=== PATIENT | male | born 1940 | race Caucasian/White ===

== ENCOUNTER 2022-05-01 13:27 | Outpatient (CLI) | payer MEDICARE, SELFPAY ==
[2022-05-01 11:16] LABS: Creatinine Urine 208.5 mg/dL
[2022-05-01 11:21] LABS: Microalbumin Creatinine Ratio 0 mg/g (0-30); Microalbumin Urine 2 mg/dL
[2022-05-01 11:30] LABS: Albumin* 4.1 g/dL (3.3-5.0); Chloride* 89 mmol/L (96-114); Sodium* 129 mmol/L (135-149)
[2022-05-01 11:32] LABS: Bilirubin Total* 2.7 mg/dL (0.1-1.5); Carbon Dioxide* 33 mmol/L (20-32); Cholesterol* 154 mg/dL (90-199); Creatinine* 0.9 mg/dL (0.5-1.5); Estimated Glomerular Filt Rate 84 ml/min
[2022-05-01 11:33] LABS: Alanine Aminotransferase* 25 U/L (4-50); Alkaline Phosphatase* 58 U/L (40-150); Aspartate Amino Transferase* 26 U/L (12-35); Blood Urea Nitrogen* 19 mg/dL (7-30); Calcium* 9.1 mg/dL (8.4-10.6); Glucose* 138 mg/dL (60-115); Total Protein* 6.8 g/dL (6.0-8.3); Triglycerides* 106 mg/dL (40-149)
[2022-05-01 11:34] LABS: HDL Cholesterol* 54 mg/dL (>=40); LDL Cholesterol Calculated 79 mg/dL (<100)
[2022-05-01 12:11] LABS: PSA Screen* < 0.06 ng/mL (0.10-4.00)
== END 2022-05-01 13:28 | disposition home or self-care (01) ==
PROVIDERS: PCP Internal Medicine; Visit Provider Internal Medicine
DX: E13.9 Other specified diabetes mellitus without complications (principal); E78.5 Hyperlipidemia, unspecified; I10 Essential (primary) hypertension; E11.9 Type 2 diabetes mellitus without complications; Z12.5 Encounter for screening for malignant neoplasm of prostate
CPT/HCPCS: 80053; 80061; 82043; 82570; 84153

== ENCOUNTER 2022-10-28 08:42 | Day surgery (SDC) | payer MEDICARE, SELFPAY ==
--- NOTE | 2022-10-28 09:05 | SUR.PREOP ---
Patient provided home covid negative results to RN.
--- NOTE | 2022-10-28 09:05 | SUR.PREOP ---
The eye drops brought by the patient (Ketorolac and Prednisolone) are examined and I have determined they are labeled by the patient's pharmacy for this patient as prescribed by the surgeon. The bottles are intact, recently obtained and appear to be correct.
[2022-10-28] MEDS: TETRACAINE 0.5% OPHTH 1 DROP EYE-RIGHT ×2 (09:14→09:22)
[2022-10-28 09:18] VITALS: BMI 31.4
[2022-10-28 09:21] VITALS: BP 154/89; PULSE 81; RESP 16; TEMP 36.6; O2SAT 96
[2022-10-28] MEDS: KETOROLAC OPHTH 0.5% 1 DROP EYE-RIGHT ×2 (09:21→09:31)
[2022-10-28] MEDS: SODIUM CHLORIDE 0.9 % (FLUSH) 10 ML SYRINGE IVF (09:34)
[2022-10-28] MEDS: TETRACAINE 0.5% OPHTH 2 DROP EYE-RIGHT (10:42)
[2022-10-28] MEDS: BALANCED SALT IRRIG SOLN 15 ML EYE-RIGHT (10:46)
--- NOTE | 2022-10-28 10:53 | W.ANESCHARGE ---
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
[2022-10-28 11:14] VITALS: BP 142/89; PULSE 73; RESP 20; TEMP 36.3; O2SAT 97
--- NOTE | 2022-10-28 11:14 | W.ANESCHARGE ---
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
--- NOTE | 2022-10-28 12:58 | W.PM.OPTPROC ---
Procedure Note Date of procedure: 10/28/22 Will [facility] bill your pro fee for this procedure?: Yes Procedure Description: SURGEON: Any Bernard MD PREOPERATIVE DIAGNOSIS: Nuclear sclerotic cataract, right eye. POSTOPERATIVE DIAGNOSIS: Nuclear sclerotic cataract, right eye. NAME OF OPERATION: Phacoemulsification of cataract with posterior chamber intraocular lens implantation in the right eye. ANESTHESIA: Topical. ESTIMATED BLOOD LOSS: Less than 2 cc. COMPLICATIONS: None. PATHOLOGY SPECIMEN: None. INDICATIONS: See consult note for details. The risks, benefits and alternatives of the procedure were explained to the patient, who elected to proceed and signed informed consent to do so. PROCEDURE: The patient was brought to the pre-holding area where the right eye was identified as the operative eye. I placed my initials above this eye. The patient received eye drops consisting of 0.5% tetracaine, 1% tropicamide, 10% phenylephrine, and 0.5% ketorolac. The patient was then brought to the operating room where the right eye was again identified as the operative eye. The eye was prepped with Betadine and draped in the usual sterile ophthalmic fashion. A #15 super-sharp blade was used to create a paracentesis site. 1% non-preserved intracameral lidocaine was injected into the anterior chamber. Endocoat was injected into the anterior chamber. A 2.4 mm keratome was used to create a three-plane self-sealing incision 1 mm anterior to the temporal limbus. A cystotome was used to create an anterior capsular leaflet. The Utrata forceps were used to extend this to form a continuous curvilinear capsulorrhexis. Hydrodissection was performed. The cataract was removed with phacoemulsification using the [id number]-dnm-[id number] technique. The irrigation and aspiration tip was used to remove the remaining cortex. Healon was injected into the capsular bag. An YESI ZCB00 intraocular lens of 20.5 diopters was injected into the capsular bag. The irrigation and aspiration tip was used to remove the remaining viscoelastic. Balanced salt solution on a cannula was used to hydrate the wound, and the wound was found to be watertight. The pupil was noted to be round. DISPOSITION: The patient was taken to the recovery room and discharged to home in stable condition. The patient was instructed to call me or go to the emergency department with any sudden change, including dramatic loss of vision, severe pain in the eye or eyebrow region, nausea, or vomiting. The patient will follow up in the clinic tomorrow morning. Surgeon: Any Bernard MD
== END 2022-10-28 11:42 | disposition home or self-care (01) ==
PROVIDERS: PCP Internal Medicine; Visit Provider Ophthalmology
PROC: (CPT 66984; principal; 2022-10-28 09:00)
DX: H25.11 Age-related nuclear cataract, right eye (principal)
CPT/HCPCS: 66984; 00142; 82962; 99100; A9270; J2250; J3010; V2632

== ENCOUNTER 2022-11-11 06:08 | Day surgery (SDC) | payer MEDICARE, SELFPAY ==
[2022-11-11] MEDS: TETRACAINE 0.5% OPHTH 1 DROP EYE-LEFT ×2 (06:36→06:43)
[2022-11-11 06:40] VITALS: BMI 31.4
[2022-11-11] MEDS: KETOROLAC OPHTH 0.5% 1 DROP EYE-LEFT ×2 (06:42→06:50)
[2022-11-11] MEDS: SODIUM CHLORIDE 0.9 % (FLUSH) 10 ML SYRINGE IVF (06:55)
[2022-11-11 06:56] VITALS: BP 154/84; PULSE 70; RESP 16; TEMP 35.9; O2SAT 99
--- NOTE | 2022-11-11 07:00 | SUR.PREOP ---
Patient provided home covid negative results to RN.
[2022-11-11] MEDS: TETRACAINE 0.5% OPHTH 2 DROP EYE-LEFT (07:18)
[2022-11-11] MEDS: BALANCED SALT IRRIG SOLN 15 ML EYE-LEFT (07:23)
--- NOTE | 2022-11-11 07:27 | W.ANESCHARGE ---
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
[2022-11-11 07:50] VITALS: BP 140/80; PULSE 58; RESP 16; O2SAT 98
--- NOTE | 2022-11-11 07:50 | P.OPTPRC_ITS ---
Procedure Note Date of procedure: 11/11/22 Will [facility] bill your pro fee for this procedure?: Yes Procedure Description: SURGEON: Any Bernard MD PREOPERATIVE DIAGNOSIS: Nuclear sclerotic cataract, left eye. POSTOPERATIVE DIAGNOSIS: Nuclear sclerotic cataract, left eye. NAME OF OPERATION: Phacoemulsification of cataract with posterior chamber intraocular lens implantation in the left eye. ANESTHESIA: Topical. ESTIMATED BLOOD LOSS: Less than 2 cc. COMPLICATIONS: None. PATHOLOGY SPECIMEN: None. INDICATIONS: See consult note for details. The risks, benefits and alternatives of the procedure were explained to the patient, who elected to proceed and sign ed informed consent to do so. PROCEDURE: The patient was brought to the pre-holding area where the left eye was identified as the operative eye. I placed my initials above this eye. The patient received eye drops consisting of 0.5% tetracaine, 1% tropicamide, 10% phenylephrine, and 0.5% ketorolac. The patient was then brought to the operating room where the left eye was again identified as the operative eye. The eye was prepped with Betadine and draped in the usual sterile ophthalmic fashion. A #15 super-sharp blade was used to create a paracentesis site. 1% non-preserved intracameral lidocaine was injected into the anterior chamber. Endocoat was injected into the anterior chamber. A 2.4 mm keratome was used to create a three-plane self-sealing incision 1 mm anterior to the temporal limbus. A cystotome was used to create an anterior capsular leaflet. The Utrata forceps were used to extend this to form a continuous curvilinear capsulorrhexis. Hydrodissection was performed. The cataract was removed with phacoemulsification using the [id number] technique. The irrigation and aspiration tip was used to remove the remaining cortex. Healon was injected into the capsular bag. An YESI ZCB00 intraocular lens of 19.0 diopters was injected into the capsular bag. The irrigation and aspiration tip was used to remove the remaining viscoelastic. Balanced salt solution on a cannula was used to hydrate the wound, and the wound was found to be watertight. The pupil was noted to be round. DISPOSITION: The patient was taken to the recovery room and discharged to home in stable condition. The patient was instructed to call me or go to the emergency department with any sudden change, including dramatic loss of vision, severe pain in the eye or eyebrow region, nausea, or vomiting. The patient will follow up in the clinic tomorrow morning. Surgeon: Any Bernard MD
== END 2022-11-11 08:09 | disposition home or self-care (01) ==
PROVIDERS: PCP Internal Medicine; Visit Provider Ophthalmology
PROC: (CPT 66984; principal; 2022-11-11 06:15)
DX: H25.12 Age-related nuclear cataract, left eye (principal)
CPT/HCPCS: 66984; 00142; 99100; J2250; J3010; V2632

== ENCOUNTER 2023-04-12 08:38 | Outpatient (CLI) | payer MEDICARE, SELFPAY | END 2023-04-12 08:39 | disposition home or self-care (01) | LOC: NFLDREF 12:12 | PROVIDERS: PCP Internal Medicine; Referring Provider Internal Medicine; Visit Provider Internal Medicine | DX: E11.9 Type 2 diabetes mellitus without complications (principal); E78.5 Hyperlipidemia, unspecified; C61 Malignant neoplasm of prostate; I10 Essential (primary) hypertension; R82.79 Other abnormal findings on microbiological examination of urine | CPT/HCPCS: 80053; 80061; 84153; 87086 ==

== ENCOUNTER 2024-04-11 07:55 | Outpatient (CLI) | payer MEDICARE, SELFPAY | END 2024-04-11 07:56 | disposition home or self-care (01) | LOC: NFLDREF 04-12 11:33 | PROVIDERS: PCP Internal Medicine; Referring Provider Internal Medicine; Visit Provider Internal Medicine | DX: E11.9 Type 2 diabetes mellitus without complications (principal); I10 Essential (primary) hypertension; E78.5 Hyperlipidemia, unspecified; N52.9 Male erectile dysfunction, unspecified; C61 Malignant neoplasm of prostate | CPT/HCPCS: 80053; 80061; 82043; 82570; G0103 ==

== ENCOUNTER 2025-04-17 07:30 | Outpatient (CLI) | payer MEDICARE, SELFPAY | END 2025-04-17 07:31 | disposition home or self-care (01) | LOC: NFLDREF 04-20 17:58 | PROVIDERS: PCP Internal Medicine; Referring Provider Internal Medicine; Visit Provider Internal Medicine | DX: E78.5 Hyperlipidemia, unspecified (principal); I10 Essential (primary) hypertension; E11.9 Type 2 diabetes mellitus without complications; C61 Malignant neoplasm of prostate | CPT/HCPCS: 80053; 80061; 82043; 82570; G0103 ==

== ENCOUNTER 2025-07-28 13:04 | Emergency (ER) | payer MEDICARE, SELFPAY ==
[2025-07-28 13:14] VITALS: BP 107/66; PULSE 73; RESP 18; TEMP 36.3; O2SAT 97; BMI 30.3
--- NOTE | 2025-07-28 13:48 | ED.WOUNDLAC ---
HPI - Wound/Laceration General Date Seen: 07/28/25 Chief Complaint: Laceration/Wound Stated Complaint: Fell and injured right arm Time Seen by Provider: 07/28/25 13:20 Source: patient Mode of arrival: ambulatory Limitations: no limitations History of Present Illness HPI narrative: Patient is an 85-year-old male presenting to emergency department after a fall. He states he was doing some work outside when he tripped over a piece of exposed edging. He landed on his right forearm onto the ground. States he did not hit his head. Denies any other injuries. Denies wrist, forearm, elbow, shoulder pain. Is doing well otherwise. No other concerns. Not on any blood thinners. Related Data Home Medications ?Medication ?Instructions ?Recorded ?Confirmed acetaminophen 325 mg capsule 650 mg PO QDAY PRN 10/20/22 07/28/25 (Tylenol) naproxen sodium 220 mg tablet 220 mg PO BID PRN 09/15/23 07/28/25 (Aleve) Previous Rx's ?Medication ?Instructions ?Recorded atorvastatin 20 mg tablet 20 mg PO QPM #90 tabs 04/19/25 losartan 50 mg tablet 50 mg PO DAILY for blood pressure 04/19/25 #90 tabs metformin 500 mg tablet,extended 1,000 mg (2 x 500 mg) PO QDAY #180 04/19/25 release 24 hr tabs triamterene 75 1 tab PO DAILY Hypertension #90 04/19/25 mg-hydrochlorothiazide 50 mg tablet tabs omeprazole 20 mg capsule,delayed 20 mg PO DAILY gerd #90 caps 05/18/25 release Allergies Allergy/AdvReac Type Severity Reaction Status Date / Time penicillin V Allergy Severe Anaphylaxis Verified 07/28/25 13:19 codeine Allergy Mild abd pain Verified 07/28/25 13:19 Review of Systems Narrative: Pertinent systems reviewed and were negative unless stated in HPI PFSH PFSH Medical History Erectile dysfunction ?N52.9 - Male erectile dysfunction, unspecified (ICD-10) H/O Mohs micrographic surgery for skin cancer ?Z85.828 - Personal history of other malignant neoplasm of skin (ICD-10) ?Z98.890 - Other specified postprocedural states (ICD-10) Ventral hernia ?K43.9 - Ventral hernia without obstruction or gangrene (ICD-10) Leg cramps ?R25.2 - Cramp and spasm (ICD-10) Tinea ?B35.9 - Dermatophytosis, unspecified (ICD-10) Type 2 diabetes mellitus ?E11.9 - Type 2 diabetes mellitus without complications (ICD-10) Malignant neoplasm of prostate ?C61 - Malignant neoplasm of prostate (ICD-10) History of squamous cell carcinoma ?Z85.89 - Personal history of malignant neoplasm of other organs and systems (ICD-10) History of basal cell carcinoma (BCC) ?Z85.828 - Personal history of other malignant neoplasm of skin (ICD-10) Gastroesophageal reflux disease ?K21.9 - Gastro-esophageal reflux disease without esophagitis (ICD-10) HTN (hypertension) ?I10 - Essential (primary) hypertension (ICD-10) Surgical History S/P prostatectomy ?Z90.79 - Acquired absence of other genital organ(s) (ICD-10) History of tonsillectomy and adenoidectomy ?Z90.89 - Acquired absence of other organs (ICD-10) History of cholecystectomy ?Z90.49 - Acquired absence of other specified parts of digestive tract (ICD-10) History of appendectomy ?Z90.49 - Acquired absence of other specified parts of digestive tract (ICD-10) Social History Narrative: 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 What is your current living situation?: I presently have a place to live Problems where you live: no known problems In the past 12 months, utilities in danger of being shut off: no In past 12 months, lack of transportation kept you from medical appts, meetings, work, or getting things needed for daily living: no In the past 12 mos, have been you worried that your food would run out before you had money to buy more?: never true In the past 12 mos, the food you bought just didn't last and you didn't have money to buy more?: never true Smoking Status: Former smoker How often do you have a drink containing alcohol: 2-4 times a month Alcohol type: beer How many standard drinks containing alcohol do you have on a typical day: 1 or 2 AUDIT-C Alcohol total score: 2 Non-prescribed substance use: denies use Caffeine: Yes How often does anyone, including family, friends and others, physically hurt you: never How often does anyone, including family, friends and others, insult or talk down to you: never How often does anyone, including family, friends and others, threaten you with harm: never How often does anyone, including family, friends and others, scream or curse at you: never Exam Narrative: Exam Narrative: Const: Well-nourished, Well-developed, in no distress Eyes: PERRL, no conjunctival injection, and symmetrical lids HENT: Atraumatic external nose and ears. Moist mucous membranes. CVS: Radial pulses 2+ and equal in all extremities MSK:Extremities w/o deformity, Normal Active ROM Skin: Warm, Dry. 11 cm skin tear to right ulnar aspect of the forearm Neuro: Normal Muscle tone, No focal neurological deficits. Psych: Awake, Alert, & Oriented x3. Appropriate mood and affect. Const: Vital Signs, click to edit/add: Vital Signs - 24 hr 07/28/25 13:14 Temperature 97.3 F L Pulse Rate [Left P ulse Oximeter] 73 Respiratory Rate 18 Blood Pressure [Ri ght Upper Arm] 107/66 Pulse Oximetry 97 Oxygen Delivery Me thod Room Air Course Vital Signs Vital signs: Initial Vital Signs Temperature 97.3 F L 07/28/25 13:14 Temperature Source Temporal Artery Scan 07/28/25 13:14 Pulse Rate 73 07/28/25 13:14 Pulse Rhythm Regular 07/28/25 13:14 Respiratory Rate 18 07/28/25 13:14 Blood Pressure 107/66 07/28/25 13:14 Blood Pressure Mean 79 07/28/25 13:14 Blood Pressure Position Sitting 07/28/25 13:14 Pulse Oximetry 97 07/28/25 13:14 Oxygen Delivery Method Room Air 07/28/25 13:14 Vital Signs Temperature 97.3 F L 07/28/25 13:14 Pulse Rate 73 07/28/25 13:14 Respiratory Rate 18 07/28/25 13:14 Blood Pressure 107/66 07/28/25 13:14 Pulse Oximetry 97 07/28/25 13:14 Oxygen Delivery Method Room Air 07/28/25 13:14 Temperature 97.3 F L 07/28/25 13:14 Pulse Rate 73 07/28/25 13:14 Respiratory Rate 18 07/28/25 13:14 Blood Pressure 107/66 07/28/25 13:14 Pulse Oximetry 97 07/28/25 13:14 Oxygen Delivery Method Room Air 07/28/25 13:14 MDM - Wound/Laceration MDM Narrative Medical decision making narrative: Patient is a 85-year-old male presenting for a fall. His last tetanus was from 2020. Had no lightheadedness or dizziness before or after the fall. This sounds like a mechanical fall. The wound was irrigated and due to it being a skin tear with very thin skin Steri-Strips were used to close up the wound. It would not be able to hold with sutures. He is doing well at this time. No other injuries. Imaging not indicated at this time. He is currently pain free he states. Neurovascular intact. He will be discharged. Antibiotics are not indicated. Diagnosis: Right forearm skin tear Discharge Plan Discharge Clinical Impression: Skin tear of forearm without complication Qualifiers: Encounter type: initial encounter Laterality: right Qualified Code(s): S51.811A - Laceration without foreign body of right forearm, initial encounter Patient Disposition: Home, Self-Care Condition: Improved Instructions: Skin Tear (ED) Additional Instructions: Try to keep the area covered for the next few days to help prevent the Steri-Strips from falling off sooner than they were supposed to. They should fall off over time on their own. These do not need to be replaced. You can shower but again do not rub the area as we do not want you to accidentally peel them off too soon. Prescriptions: No Action acetaminophen [Tylenol] 325 mg capsule 650 mg PO QDAY PRN naproxen sodium [Aleve] 220 mg tablet 220 mg PO BID PRN atorvastatin 20 mg tablet 20 mg PO QPM Qty: 90 3RF losartan 50 mg tablet 50 mg PO DAILY Qty: 90 2RF metformin 500 mg tablet extended release 24 hr 1,000 mg PO QDAY Qty: 180 2RF triamterene-hydrochlorothiazid 75-50 mg tablet 1 tab PO DAILY Qty: 90 3RF omeprazole 20 mg capsule,delayed release(DR/EC) 20 mg PO DAILY Qty: 90 3RF Follow Up/Referrals: Froy Khoury MD [Primary Care Provider, Internal Medicine] Stand Alone Forms: [facility] Medical Info Instructions
== END 2025-07-28 14:15 | disposition home or self-care (01) ==
PROVIDERS: Emergency Provider Student in an Organized Health Care Education/Training Program; PCP Internal Medicine
DX: S51.811A Laceration without foreign body of right forearm, initial encounter (principal); W01.10XA Fall on same level from slipping, tripping and stumbling with subsequent striking against unspecified object, initial encounter
CPT/HCPCS: 99282; 99283

== ENCOUNTER 2025-08-31 18:33 | Outpatient (CLI) | payer MEDICARE, SELFPAY | END 2025-08-31 18:34 | disposition home or self-care (01) | LOC: AMB 09-02 23:33 | PROVIDERS: PCP Internal Medicine; Visit Provider Emergency Medicine Emergency Medical Services | DX: R53.1 Weakness (principal); R42 Dizziness and giddiness | CPT/HCPCS: A0425; A0427 ==

== ENCOUNTER 2025-08-31 19:19 | Inpatient (IN) | payer MEDICARE, SELFPAY ==
--- OUTSIDE RECORDS SUMMARY | 2025-06-12 18:00 | XMS_ITS | Continuity of Care Document ---
Author Name [facility] Organization [facility] Care Team Providers Care Loom Operator Name Role Phone [facility] Unavailable Unavailable Problems Combined list of problems from Department of [facility] and [facility] Affairs facilities. It does not include entries that were removed or entered in error. Problem Status Onset Date Problem Type Date of Resolution Comments Source Exposure to potentially hazardous substance (SCT [id number] ) Active 11/11/19 24 Condition Nov 11, 2023 Entered By: SELAM FOSTER Comment: [facility] DION Documentation Initiative [facility] Diagnosis: ICD-10-CM Z46.1 E ncounter for fitting and adjustment of hearing aid Active Diagnosis [facility] Immunizations Combined list of available immunizations from the Department of Defense and [facility] Affairs facilities. Immunization Series Date Given Administered By Site Reaction Lot Number CVX Code Drug Vallez Filter Operator Status Comments Source COVID-19 (Creactives), MRNA, LNP-S, PF, SUMAN-SUCROSE, 30 MCG/0.3 ML (AGES 12+ YEARS) 2024 309 complet ed HISTORICA L INFORMATI ON - FROM OTHER [facility] INFLUENZA, HIGH-DOSE, TRIVALENT, PF 2024 135 complet ed HISTORICA L INFORMATI ON - FROM OTHER [facility] COVID-19 (Creactives), MRNA, LNP-S, PF, SUMAN-SUCROSE, 30 MCG/0.3 ML (AGES 12+ YEARS) 2023 309 complet ed HISTORICA L INFORMATI ON - FROM OTHER [facility] INFLUENZA, HIGH-DOSE, TRIVALENT, PF 2023 135 complet ed HISTORICA L INFORMATI ON - FROM OTHER [facility] RSV, RECOMBINANT, PROTEIN SUBUNIT RSVPREF3, ADJUVANT RECONSTITUTED , 0.5 ML, PF 2022 303 complet ed HISTORICA L INFORMATI ON - FROM OTHER [facility] COVID-19 (Creactives), MRNA, LNP-S, PF, SUMAN-SUCROSE, 30 MCG/0.3 ML (AGES 12+ YEARS) 2022 309 complet ed HISTORICA L INFORMATI ON - FROM OTHER REGISTRY, [facility] INFLUENZA, HIGH-DOSE, QUADRIVALENT, PF 2022 197 complet ed HISTORICA L INFORMATI ON - FROM OTHER REGISTRY, [facility] TDAP 2022 115 complet ed HISTORICA L INFORMATI ON - FROM OTHER REGISTRY, [facility] INFLUENZA, HIGH-DOSE, QUADRIVALENT, PF 2021 197 complet ed HISTORICA L INFORMATI ON - FROM OTHER REGISTRY, [facility] COVID-19 (PFIZER), MRNA, LNP-S, BIVALENT, PF, 30 MCG/0.3 ML DOSE 2021 300 complet ed HISTORICA L INFORMATI ON - FROM OTHER REGISTRY, [facility] COVID-19 (Creactives), MRNA, LNP-S, PF, 30 MCG/0.3 ML DOSE 2021 208 complet ed HISTORICA L INFORMATI ON - FROM OTHER REGISTRY, [facility] COVID-19 (PFIZER), MRNA, LNP-S, PF, 30 MCG/0.3 ML DOSE 2020 208 complet ed HISTORICA L INFORMATI ON - FROM OTHER REGISTRY, [facility] INFLUENZA, HIGH-DOSE, QUADRIVALENT, PF 2020 197 complet ed HISTORICA L INFORMATI ON - FROM OTHER REGISTRY, [facility] COVID-19 (PFIZER), MRNA, LNP-S, PF, 30 MCG/0.3 ML DOSE 2 2020 208 complet ed PFR; [id number]; 1 [facility] COVID-19 (PFIZER), MRNA, LNP-S, PF, 30 MCG/0.3 ML DOSE 1 2020 208 complet ed PFR; [id number]; 1 [facility] INFLUENZA, HIGH-DOSE, QUADRIVALENT, PF 2019 197 complet ed HISTORICA L INFORMATI ON - FROM OTHER REGISTRY, [facility] ZOSTER RECOMBINANT 2019 187 complet ed HISTORICA L INFORMATI ON - FROM OTHER REGISTRY, [facility] ZOSTER RECOMBINANT 2018 187 complet ed HISTORICA L INFORMATI ON - FROM OTHER REGISTRY, [facility] INFLUENZA, HIGH-DOSE, TRIVALENT, PF 2018 135 complet ed HISTORICA L INFORMATI ON - FROM OTHER REGISTRY, [facility] INFLUENZA, HIGH-DOSE, TRIVALENT, PF 2017 135 complet ed HISTORICA L INFORMATI ON - FROM OTHER REGISTRY, [facility] INFLUENZA, HIGH-DOSE, TRIVALENT, PF 2016 135 complet ed HISTORICA L INFORMATI ON - FROM OTHER REGISTRY, [facility] INFLUENZA, HIGH-DOSE, TRIVALENT, PF 2015 135 complet ed HISTORICA L INFORMATI ON - FROM OTHER REGISTRY, [facility] INFLUENZA, HIGH-DOSE, TRIVALENT, PF 2014 135 complet ed HISTORICA L INFORMATI ON - FROM OTHER REGISTRY, [facility] TDAP 2014 115 complet ed HISTORICA L INFORMATI ON - FROM OTHER REGISTRY, [facility] ZOSTER LIVE 2014 121 complet ed HISTORICA L INFORMATI ON - FROM OTHER REGISTRY, [facility] PNEUMOCOCCAL CONJUGATE PCV 13 2014 133 complet ed HISTORICA L INFORMATI ON - FROM OTHER REGISTRY, [facility] INFLUENZA, HIGH-DOSE, TRIVALENT, PF 2013 135 complet ed HISTORICA L INFORMATI ON - FROM OTHER REGISTRY, [facility] INFLUENZA, HIGH-DOSE, TRIVALENT, PF 2012 135 complet ed HISTORICA L INFORMATI ON - FROM OTHER REGISTRY, [facility] INFLUENZA, HIGH-DOSE, TRIVALENT, PF 2011 135 complet ed HISTORICA L INFORMATI ON - FROM OTHER REGISTRY, [facility] INFLUENZA, HIGH-DOSE, TRIVALENT, PF 2010 135 complet ed HISTORICA L INFORMATI ON - FROM OTHER REGISTRY, [facility] TD (ADULT), 5 LF TETANUS TOXOID, PRESERVATIVE FREE, ADSORBED 2010 113 complet ed HISTORICA L INFORMATI ON - FROM OTHER REGISTRY, [facility] INFLUENZA, HIGH-DOSE, TRIVALENT, PF 2009 135 complet ed HISTORICA L INFORMATI ON - FROM OTHER REGISTRY, [facility] INFLUENZA, SPLIT VIRUS, QUADRIVALENT, PF 2009 150 complet ed HISTORICA L INFORMATI ON - FROM OTHER REGISTRY, [facility] NOVEL INFLUENZA-H1N 1-09, ALL FORMULATIONS 2009 128 complet ed HISTORICA L INFORMATI ON - FROM OTHER REGISTRY, [facility] INFLUENZA, SPLIT VIRUS, TRIVALENT, PRESERVATIVE 2008 141 complet ed HISTORICA L INFORMATI ON - FROM OTHER REGISTRY, [facility] INFLUENZA, SPLIT VIRUS, TRIVALENT, PRESERVATIVE 2007 141 complet ed HISTORICA L INFORMATI ON - FROM OTHER REGISTRY, [facility] PNEUMOCOCCAL POLYSACCHARID E PPV23 2007 33 complet ed HISTORICA L INFORMATI ON - FROM OTHER REGISTRY, [facility] INFLUENZA, SPLIT VIRUS, TRIVALENT, PRESERVATIVE 2006 141 complet ed HISTORICA L INFORMATI ON - FROM OTHER REGISTRY, [facility] Encounters Combined list of: 1) Encounters from Department of Veterans Affairs facilities going backup to the last 18 months, not all [place] inpatient encounters are included; 2) Encounters from the Department of Defense facilities going backup to 280 months. Location Location Details Encounter Type Encounter Number Reason For Visit Attending Provider ADM Date DC Date Status Disposition Source [facility] Outpatient Encounter [id number] 06/05 [facility] HEARING AID REPAIR/MOD IFYING [id number] Diagnos is: ICD-10- CM Z46.1 Encount er for fitting and adjustm ent of hearing aid SHAY ZIMMER 10/19 [facility] Outpatient Encounter [id number] 06/01 [facility] Outpatient Encounter [id number] TIERA KAPLAN 06/09 [facility] Outpatient Encounter [id number] 06/13 JESSICA LU [facility]
--- OUTSIDE RECORDS SUMMARY | 2025-06-12 18:00 | XMS_ITS | Continuity of Care Document ---
Author Name [facility] Organization [facility] Care Team Providers Care Wax Room Supervisor Name Role Phone [facility] Unavailable Unavailable Problems Combined list of problems from Department of [facility] and [facility] Affairs facilities. It does not include entries that were removed or entered in error. Problem Status Onset Date Problem Type Date of Resolution Comments Source Exposure to potentially hazardous substance (SCT [id number] ) Active 11/11/19 24 Condition Nov 11, 2023 Entered By: SELAM FOSTER [facility] Documentation Initiative [facility] Diagnosis: ICD-10-CM Z46.1 E ncounter for fitting and adjustment of hearing aid Active Diagnosis [facility] Immunizations Combined list of available immunizations from the Department of Defense and [facility] Affairs facilities. Immunization Series Date Given Administered By Site Reaction Lot Number CVX Code Drug Bilingual Loan Processor Status Comments Source COVID-19 (Frontback), MRNA, LNP-S, PF, SUMAN-SUCROSE, 30 MCG/0.3 ML (AGES 12+ YEARS) 2024 309 complet ed HISTORICA L INFORMATI ON - FROM OTHER [facility] INFLUENZA, HIGH-DOSE, TRIVALENT, PF 2024 135 complet ed HISTORICA L INFORMATI ON - FROM OTHER [facility] COVID-19 (Frontback), MRNA, LNP-S, PF, SUMAN-SUCROSE, 30 MCG/0.3 ML (AGES 12+ YEARS) 2023 309 complet ed HISTORICA L INFORMATI ON - FROM OTHER [facility] INFLUENZA, HIGH-DOSE, TRIVALENT, PF 2023 135 complet ed HISTORICA L INFORMATI ON - FROM OTHER [facility] RSV, RECOMBINANT, PROTEIN SUBUNIT RSVPREF3, ADJUVANT RECONSTITUTED , 0.5 ML, PF 2022 303 complet ed HISTORICA L INFORMATI ON - FROM OTHER [facility] COVID-19 (Frontback), MRNA, LNP-S, PF, SUMAN-SUCROSE, 30 MCG/0.3 ML (AGES 12+ YEARS) 2022 309 complet ed HISTORICA L INFORMATI ON - FROM OTHER REGISTRY, [facility] INFLUENZA, HIGH-DOSE, QUADRIVALENT, PF 2022 197 complet ed HISTORICA L INFORMATI ON - FROM OTHER REGISTRY, [facility] TDAP 2022 115 complet ed HISTORICA L INFORMATI ON - FROM OTHER REGISTRY, [facility] INFLUENZA, HIGH-DOSE, QUADRIVALENT, PF 2021 197 complet ed HISTORICA L INFORMATI ON - FROM OTHER REGISTRY, [facility] COVID-19 (PFIZER), MRNA, LNP-S, BIVALENT, PF, 30 MCG/0.3 ML DOSE 2021 300 complet ed HISTORICA L INFORMATI ON - FROM OTHER REGISTRY, [facility] COVID-19 (Frontback), MRNA, LNP-S, PF, 30 MCG/0.3 ML DOSE 2021 208 complet ed HISTORICA L INFORMATI ON - FROM OTHER REGISTRY, [facility] COVID-19 (PFIZER), MRNA, LNP-S, PF, 30 MCG/0.3 ML DOSE 2020 208 complet ed HISTORICA L INFORMATI ON - FROM OTHER REGISTRY, [facility] INFLUENZA, HIGH-DOSE, QUADRIVALENT, PF 2020 197 complet ed HISTORICA L INFORMATI ON - FROM OTHER REGISTRY, [facility] COVID-19 (PFIZER), MRNA, LNP-S, PF, 30 MCG/0.3 ML DOSE 2 2020 208 complet ed PFR; [id number]; 1 [facility] COVID-19 (PFIZER), MRNA, LNP-S, PF, 30 MCG/0.3 ML DOSE 1 2020 208 complet ed PFR; [id number]; 1 [facility] INFLUENZA, HIGH-DOSE, QUADRIVALENT, PF 2019 197 complet ed HISTORICA L INFORMATI ON - FROM OTHER REGISTRY, [facility] ZOSTER RECOMBINANT 2019 187 complet ed HISTORICA L INFORMATI ON - FROM OTHER REGISTRY, [facility] ZOSTER RECOMBINANT 2018 187 complet ed HISTORICA L INFORMATI ON - FROM OTHER REGISTRY, [facility] INFLUENZA, HIGH-DOSE, TRIVALENT, PF 2018 135 complet ed HISTORICA L INFORMATI ON - FROM OTHER REGISTRY, [facility] INFLUENZA, HIGH-DOSE, TRIVALENT, PF 2017 135 complet ed HISTORICA L INFORMATI ON - FROM OTHER REGISTRY, [facility] INFLUENZA, HIGH-DOSE, TRIVALENT, PF 2016 135 complet ed HISTORICA L INFORMATI ON - FROM OTHER REGISTRY, [facility] INFLUENZA, HIGH-DOSE, TRIVALENT, PF 2015 135 complet ed HISTORICA L INFORMATI ON - FROM OTHER REGISTRY, [facility] INFLUENZA, HIGH-DOSE, TRIVALENT, PF 2014 135 complet ed HISTORICA L INFORMATI ON - FROM OTHER REGISTRY, [facility] TDAP 2014 115 complet ed HISTORICA L INFORMATI ON - FROM OTHER REGISTRY, [facility] ZOSTER LIVE 2014 121 complet ed HISTORICA L INFORMATI ON - FROM OTHER REGISTRY, [facility] PNEUMOCOCCAL CONJUGATE PCV 13 2014 133 complet ed HISTORICA L INFORMATI ON - FROM OTHER REGISTRY, [facility] INFLUENZA, HIGH-DOSE, TRIVALENT, PF 2013 135 complet ed HISTORICA L INFORMATI ON - FROM OTHER REGISTRY, [facility] INFLUENZA, HIGH-DOSE, TRIVALENT, PF 2012 135 complet ed HISTORICA L INFORMATI ON - FROM OTHER REGISTRY, [facility] INFLUENZA, HIGH-DOSE, TRIVALENT, PF 2011 135 complet ed HISTORICA L INFORMATI ON - FROM OTHER REGISTRY, [facility] INFLUENZA, HIGH-DOSE, TRIVALENT, PF 2010 135 complet ed HISTORICA L INFORMATI ON - FROM OTHER REGISTRY, [facility] TD (ADULT), 5 LF TETANUS TOXOID, PRESERVATIVE FREE, ADSORBED 2010 113 complet ed HISTORICA L INFORMATI ON - FROM OTHER REGISTRY, [facility] INFLUENZA, HIGH-DOSE, TRIVALENT, PF 2009 135 complet ed HISTORICA L INFORMATI ON - FROM OTHER REGISTRY, [facility] INFLUENZA, SPLIT VIRUS, QUADRIVALENT, PF 2009 150 complet ed HISTORICA L INFORMATI ON - FROM OTHER REGISTRY, [facility] NOVEL INFLUENZA-H1N 1-09, ALL FORMULATIONS 2009 128 complet ed HISTORICA L INFORMATI ON - FROM OTHER REGISTRY, [facility] INFLUENZA, SPLIT VIRUS, TRIVALENT, PRESERVATIVE 2008 141 complet ed HISTORICA L INFORMATI ON - FROM OTHER REGISTRY, [facility] INFLUENZA, SPLIT VIRUS, TRIVALENT, PRESERVATIVE 2007 141 complet ed HISTORICA L INFORMATI ON - FROM OTHER REGISTRY, [facility] PNEUMOCOCCAL POLYSACCHARID E PPV23 2007 33 complet ed HISTORICA L INFORMATI ON - FROM OTHER REGISTRY, [facility] INFLUENZA, SPLIT VIRUS, TRIVALENT, PRESERVATIVE 2006 141 complet ed HISTORICA L INFORMATI ON - FROM OTHER REGISTRY, [facility] Encounters Combined list of: 1) Encounters from Department of Veterans Affairs facilities going backup to the last 18 months, not all [place] inpatient encounters are included; 2) Encounters from the Department of Defense facilities going backup to 280 months. Location Location Details Encounter Type Encounter Number Reason For Visit Attending Provider ADM Date DC Date Status Disposition Source [facility] Outpatient Encounter [id number] 06/05 [facility] HEARING AID REPAIR/MOD IFYING [id number] Diagnos is: ICD-10- CM Z46.1 Encount er for fitting and adjustm ent of hearing aid SHAY ZIMMER 10/19 [facility] Outpatient Encounter [id number] 06/01 [facility] Outpatient Encounter [id number] TIERA KAPLAN 06/09 [facility] Outpatient Encounter [id number] 06/13 JESSICA LU [facility]
[2025-08-31] VITALS (14 sets, daily range): BP systolic 101–143; BP diastolic 66–89; PULSE 71–91; RESP 16–20; TEMP 36.3–36.8; O2SAT 90–98; BMI 28.6
--- NOTE | 2025-08-31 20:08 | ED_ITS ---
HPI - Weakness General Time Seen by Provider: 20:09 Date Seen: 08/31/25 Chief complaint: Weakness Stated complaint: Weakness Time Seen by Provider: 08/31/25 20:08 Source: patient and RN notes reviewed Mode of arrival: ambulatory Limitations: no limitations History of Present Illness HPI Narrative: This 85-year-old male was brought in by ambulance from his home after he had a fall from weakness. He notes he has been feeling weak for the past few days, coughing. 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 He was using a walker due to feeling weak at home, typically will not do so. He stumbled and fell to the floor, no injuries were sustained, did not hit his head, no neck or back pain. He was unable to get up and EMS was contacted. He has been coughing, dry cough. He had some nausea this morning, episode of emesis but no abdominal pain. His appetite has been diminished, he admits he has not been drinking. Nursing staff stated he noted dysuria but he tells me he has had no urinary symptoms, just isn't going as much as he has not been drinking. He has no nausea at this very time but did earlier today. He denies any history of lung disease, no asthma, no COPD. He denies any chest pain with this. His daughter is present with him. His problem list shows ventral hernia which is asymptomatic at this time, GERD, hypertension, history of prostate cancer, type 2 diabetes, arthritis, lung nodule, hyperlipidemia. Medications reviewed. Related Data Home Medications ?Medication ?Instructions ?Recorded ?Confirmed acetaminophen 325 mg capsule 650 mg PO QDAY PRN 07/28/25 (Tylenol) naproxen sodium 220 mg tablet 220 mg PO BID PRN 07/28/25 (Aleve) Previous Rx's ?Medication ?Instructions ?Recorded atorvastatin 20 mg tablet 20 mg PO QPM #90 tabs losartan 50 mg tablet 50 mg PO DAILY for blood pre ssure 04/19/25 #90 tabs metformin 500 mg tablet,extended 1,000 mg (2 x 500 mg) PO QDAY #180 04/19/25 release 24 hr tabs triamterene 75 1 tab PO DAILY Hypertension #90 08/14/25 mg-hydrochlorothiazide 50 mg tablet tabs omeprazole 20 mg capsule,delayed 20 mg PO DAILY gerd # 90 caps 05/18/25 release Allergies Allergy/AdvReac Type Severity Reaction Status Date / Time penicillin V Allergy Severe Anaphylaxis Verified 08/31/25 19:33 codeine Allergy Mild abd pain Verified 08/31/25 19:33 Review of Systems Status of ROS: Reports: 6 or more systems reviewed and unremarkable except as noted in History and below PFSH [facility] Medical History Hyperbilirubinemia ?E80.6 - Other disorders of bilirubin metabolism (ICD-10) Erectile dysfunction ?N52.9 - Male erectile dysfunction, unspecified (ICD-10) H/O Mohs micrographic surgery for skin cancer ?Z85.828 - Personal history of other malignant neoplasm of skin (ICD-10) ?Z98.890 - Other specified postprocedural states (ICD-10) Ventral hernia ?K43.9 - Ventral hernia without obstruction or gangrene (ICD-10) Leg cramps ?R25.2 - Cramp and spasm (ICD-10) Tinea ?B35.9 - Dermatophytosis, unspecified (ICD-10) Type 2 diabetes mellitus ?E11.9 - Type 2 diabetes mellitus without complications (ICD-10) Malignant neoplasm of prostate ?C61 - Malignant neoplasm of prostate (ICD-10) History of squamous cell carcinoma ?Z85.89 - Personal history of malignant neoplasm of other organs and systems (ICD-10) History of basal cell carcinoma (BCC) ?Z85.828 - Personal history of other malignant neoplasm of skin (ICD-10) Gastroesophageal reflux disease ?K21.9 - Gastro-esophageal reflux disease without esophagitis (ICD-10) HTN (hypertension) ?I10 - Essential (primary) hypertension (ICD-10) Surgical History S/P prostatectomy ?Z90.79 - Acquired absence of other genital organ(s) (ICD-10) History of tonsillectomy and adenoidectomy ?Z90.89 - Acquired absence of other organs (ICD-10) History of cholecystectomy ?Z90.49 - Acquired absence of other specified parts of digestive tract (ICD- 10) History of appendectomy ?Z90.49 - Acquired absence of other specified parts of digestive tract (ICD- 10) Social History Narrative: 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 What is your current living situation?: I presently have a place to live Problems where you live: no known problems In the past 12 months, utilities in danger of being shut off: no In past 12 months, lack of transportation kept you from medical appts, meetings, work, or getting things needed for daily living: no In the past 12 mos, have been you worried that your food would run out before you had money to buy more?: never true In the past 12 mos, the food you bought just didn't last and you didn't have money to buy more?: never true Smoking Status: Former smoker How often do you have a drink containing alcohol: 2-4 times a month Alcohol type: beer How many standard drinks containing alcohol do you have on a typical day: 1 or 2 AUDIT-C Alcohol total score: 2 Non-prescribed substance use: denies use Caffeine: Yes How often does anyone, including family, friends and others, physically hurt you : never How often does anyone, including family, friends and others, insult or talk down to you: never How often does anyone, including family, friends and others, threaten you with harm: never How often does anyone, including family, friends and others, scream or curse at you: never Exam Const: Vital Signs, click to edit/add: Vital Signs - 24 hr 08/31/25 19:33 08/31/25 20:11 08/31/25 20:42 Temperature 97.3 F L Pulse Rate 71 Pulse Rate [Pulse Oximeter] 91 Respiratory Rate 20 Blood Pressure Blood Pressure [Ri ght Upper Arm] 131/66 Pulse Oximetry 93 96 91 Oxygen Delivery Me thod Room Air 08/31/25 20:45 08/31/25 21:00 08/31/25 21:10 Temperature Pulse Rate 87 78 Pulse Rate [Pulse Oximeter] Respiratory Rate 16 Blood Pressure 134/74 Blood Pressure [Ri ght Upper Arm] Pulse Oximetry 97 98 Oxygen Delivery Me thod Room Air 08/31/25 21:22 08/31/25 21:31 08/31/25 21:33 Temperature Pulse Rate 83 83 80 Pulse Rate [Pulse Oximeter] Respiratory Rate 16 Blood Pressure 124/72 Blood Pressure [Ri ght Upper Arm] Pulse Oximetry 92 97 97 Oxygen Delivery Me thod 08/31/25 21:45 08/31/25 22:00 08/31/25 22:02 Temperature Pulse Rate 83 78 Pulse Rate [Pulse Oximeter] Respiratory Rate 16 Blood Pressure 101/72 Blood Pressure [Ri ght Upper Arm] Pulse Oximetry 96 90 Oxygen Delivery Me thod Room Air 08/31/25 22:15 Temperature Pulse Rate 80 Pulse Rate [Pulse Oximeter] Respiratory Rate Blood Pressure Blood Pressure [Ri ght Upper Arm] Pulse Oximetry 94 Oxygen Delivery Me thod This 85-year-old male is alert, interactive, no apparent distress. He is coughing repetitively with a dry cough, speech is normal but cough interrupts his speech. Sclera clear, conjugate gaze, face atraumatic. Neck supple, no adenopathy or jugular venous distension noted. He has diminished lung sounds, has difficulty taking deep breaths for me. There is no tachypnea, no accessory muscle use. CV regular rate and rhythm, do not hear any significant murmur, normal S1-S2, no S3-S4. He has supraumbilical ventral hernia which is nontender but visible and palpable. No organomegaly, abdomen is nontender. He has about trace to 1+ pretibial edema. Skin visualized without rash. Documenting provider has reviewed patient's vital signs: yes Course Course ED Course: This 85-year-old male is presenting with weakness and cough, possibly some urinary symptoms. Nursing staff had already collected a triple viral swab. Eleven monitored on pulse oximetry, get full complement of labs and do a asha ble chest x-ray. He certainly seems to have a upper respiratory infection, considerations include pneumonia, viral infection like influenza. Doubt anything like congestive heart failure. He has no history of lung disease which would make anything like COPD very unlikely. Will also initiate some IV fluids as he sounds as if he is not had good oral intake including fluids recently. Reevaluation(s) Time of Reevaluation #1: 21:45 Reevaluation #1: Have reviewed with patient and his daughter that he is hyponatremic with a sodium of 122, lower than normal. He is symptomatic with weakness, had a fall. This could have been contributed to by his influenza A. On further questioning, he really did not feel poorly yesterday, he feels today is the 1st day really manifested itself. Would recommend Tamiflu. Based on estimated creatinine clearance of 55.43, would be 30 mg q.12 hours. Consultations Consultation #1: Have spoken with the hospitalist Veronica Estrada, she agrees to accept patient after review. He will be inpatient, is symptomatic with hyponatremia, has influenza A. Reviewed that I initiated renal dosed Tamiflu. He did receive a L of normal saline here, will let her follow further treatment of hyponatremia. Time: 21:56 Vital Signs Vital signs: Initial Vital Signs Temperature 97.3 F L 08/31/25 19:33 Temperature Source Temporal Artery Scan 08/31/25 19:33 Pulse Rate 91 08/31/25 19:33 Respiratory Rate 20 08/31/25 19:33 Blood Pressure 131/66 08/31/25 19:33 Blood Pressure Mean 87 08/31/25 19:33 Pulse Oximetry 93 08/31/25 19:33 Oxygen Delivery Method Room Air 08/31/25 19:33 Vital Signs Temperature 97.3 F L 08/31/25 19:33 Pulse Rate 91 08/31/25 19:33 Respiratory Rate 20 08/31/25 19:33 Blood Pressure 131/66 08/31/25 19:33 Pulse Oximetry 93 08/31/25 19:33 Oxygen Delivery Method Room Air 08/31/25 19:33 Temperature 97.3 F L 08/31/25 19:33 Pulse Rate 80 08/31/25 22:15 Respiratory Rate 16 08/31/25 22:02 Blood Pressure 101/72 08/31/25 22:02 Pulse Oximetry 94 08/31/25 22:15 Oxygen Delivery Method Room Air 08/31/25 22:02 Medications Administered Medications: Discontinued Medications Generic Name Dose Route Start Last Admin Trade Name Freq PRN Reason Stop Dose Admin Sodium Chloride 1,000 mls @ 500 mls/hr 08/31/25 20:57 08/31/25 21:04 0.9 % Sodium Chloride 1000 Ml IV 08/31/25 22:56 500 mls/hr .Q2H CHARISSE Administration Oseltamivir Phosphate 30 mg 08/31/25 21:49 08/31/25 22:35 Oseltamivir 30 Mg Capsule PO 08/31/25 21:50 30 mg ONCE ONE Administration MDM - Weakness Lab Data Attestation: I reviewed the patient's lab results. Labs: Lab Results 08/31/25 08/31/25 08/31/25 Range/Units 19:38 20:34 21:20 WBC 5.95 (4.50-11.00) K/uL RBC 4.29 L (4.30-5.90) m/uL Hgb 13.0 L (13.5-17.5) gm/dL Hct 38.7 (37.0-53.0) % MCV 90 (80-100) fL MCH 30 (26-34) pg MCHC 34 (32-36) gm/dL RDW Coeff of [place] 13.1 (11.5-15.5) % Plt Count 230 (140-440) K/uL Neut % (Auto) 80.7 H (42.0-72.0) % Lymph % (Auto) 5.0 L (20-44) % [place] % (Auto) 13.1 H (0.0-11.0) % Eos % (Auto) 0.2 (0.0-7.0) % Baso % (Auto) 0.7 (0.0-3.0) % Neut # (Auto) 4.80 (1.7-7.0) K/uL Lymph # (Auto) 0.30 L (0.90-2.90) K/uL [place] # (Auto) 0.80 (0.00-0.90) K/UL Eos # (Auto) 0.01 (0.00-0.50) K/uL Baso # (Auto) 0.04 (0.00-0.30) K/uL Abs Immat Gran (auto) 0.02 (0.00-0.30) K/uL Imm/Tot Granulo (auto) 0.3 % Sodium 122 L* (135-149) mmol/L Potassium 3.5 L (3.6-5.1) mmol/L Chloride 86 L (96-114) mmol/L Carbon Dioxide 29 (20-32) mmol/L Anion Gap 7 (7-15) mEq/L BUN 20 (7-30) mg/dL Creatinine 1.0 (0.5-1.5) mg/dL Estimated Creat Clear 55.43 Estimated GFR 73 ml/min Glucose 160 H (60-115) mg/dL Lactate 1.5 (0.5-1.9) mmol/L Calcium 8.9 (8.4-10.6) mg/dL Total Bilirubin 1.9 H (0.1-1.5) mg/dL AST 26 (12-35) U/L ALT 21 (4-50) U/L Alkaline Phosphatase 60 (40-150) U/L C-Reactive Protein 2.4 H (0.5-1.0) mg/dL Total Protein 6.7 (6.0-8.3) g/dL Albumin 4.0 (3.3-5.0) g/dL Urine Color Yellow (Yellow) Urine Appearance Clear (Clear) Urine pH 6.0 (5.0-8.5) Ur Specific [place] 1.025 (1.000-1.030) Urine Protein 2+ A (Negative) Urine Glucose (UA) Negative (Negative) Urine Ketones Negative (Negative) Urine Blood Negative (Negative) Urine Nitrite Negative (Negative) Urine Bilirubin Negative (Negative) Urine Urobilinogen 0.2 (0.2-1.0) Ur Leukocyte Esterase Negative (Negative) Urine RBC 0-2 (0-2) Urine WBC 0-2 (0-5) Ur Squamous Epith Cells None (None-Few) Urine Bacteria None (None) SARS-CoV-2 (PCR) Negative SARS-CoV-2 (Negative) Influenza Type A (PCR) POSITIVE PCR FLU A A (Negative) Influenza Type B (PCR) Negative PCR FLU B (Negative) RSV (PCR) Negative PCR RSV (Negative) Imaging Data Chest x-ray: Attestation: I have reviewed the pertinent imaging results. My impression: I do not appreciate any CHF or active infiltrate. 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 Site :?[id number] Study:?XRay-Chest 1V-08/31/2025 8:27:06 PM Ordering Physician:Jaquelin Bai Final Report: INDICATION: Cough and weakness. TECHNIQUE: Chest 1 views. COMPARISON: April 19, 2025. FINDINGS: Cardiovasculature and mediastinum: Stable cardiomegaly. Unremarkable mediastinum. Lungs and pleural spaces: Lungs are clear. No sign of infiltrate or mass. No sign of pleural effusion. No pneumothorax. Bones and soft tissues: No significant findings. IMPRESSION: No acute findings no change compared to the prior exam. Stable cardiomegaly. No sign of CHF or pneumonia. Dictated by Filemon White MD @ 08/31/2025 9:51:32 PM (Electronic Signature) Discharge Plan Discharge Clinical Impression: Weakness, Influenza A, Hyponatremia Patient Disposition: Admitted As Inpatient
--- NOTE | 2025-08-31 20:11 | CRLHL7_ITS ---
For Patients: As a result of the Cures Act, medical imaging exams and procedure reports are released immediately into your electronic medical record. You may view this report before your referring provider. If you have questions, please contact your health care provider. INDICATION: Cough and weakness. TECHNIQUE: Chest 1 views. COMPARISON: April 19, 2025. FINDINGS: Cardiovasculature and mediastinum: Stable cardiomegaly. Unremarkable mediastinum. Lungs and pleural spaces: Lungs are clear. No sign of infiltrate or mass. No sign of pleural effusion. No pneumothorax. Bones and soft tissues: No significant findings. IMPRESSION: No acute findings no change compared to the prior exam. Stable cardiomegaly. No sign of CHF or pneumonia. Dictated by Filemon White MD @ 08/31/2025 9:51:32 PM (Electronically Signed)
[2025-08-31 20:23] LABS: PCR FLU A POSITIVE PCR FLU A (Negative); PCR FLU B Negative PCR FLU B (Negative); PCR RSV Negative PCR RSV (Negative); SARS PCR* Negative SARS-CoV-2 (Negative)
[2025-08-31 20:58] LABS: Lactate* 1.5 mmol/L (0.5-1.9)
[2025-08-31 21:05] LABS: Hematocrit* 38.7 % (37.0-53.0); Hemoglobin* 13.0 gm/dL (13.5-17.5); Immature Granulocytes Abs Auto 0.02 K/uL (0.00-0.30); Immature Granulocytes Pct Auto 0.3 %; Lymphocytes Absolute Auto 0.30 K/uL (0.90-2.90); Mean Corpuscular HGB Conc 34 gm/dL (32-36); Mean Corpuscular Hemoglobin 30 pg (26-34); Mean Corpuscular Volume 90 fL (80-100); RDW Coefficient of Variation % 13.1 % (11.5-15.5); Red Blood Count* 4.29 m/uL (4.30-5.90); White Blood Count* 5.95 K/uL (4.50-11.00)
[2025-08-31 21:18] LABS: Albumin* 4.0 g/dL (3.3-5.0); Chloride* 86 mmol/L (96-114); Potassium* 3.5 mmol/L (3.6-5.1)
[2025-08-31 21:21] LABS: Alanine Aminotransferase* 21 U/L (4-50); Aspartate Amino Transferase* 26 U/L (12-35); Blood Urea Nitrogen* 20 mg/dL (7-30); Creatinine* 1.0 mg/dL (0.5-1.5); Est. Creatinine Clearance* 55.43; Estimated Glomerular Filt Rate 73 ml/min
[2025-08-31 21:22] LABS: Alkaline Phosphatase* 60 U/L (40-150); Anion Gap 7 mEq/L (7-15); Bilirubin Total* 1.9 mg/dL (0.1-1.5); Calcium* 8.9 mg/dL (8.4-10.6); Carbon Dioxide* 29 mmol/L (20-32); Glucose* 160 mg/dL (60-115); Slide Review Reflex No; Total Protein* 6.7 g/dL (6.0-8.3)
[2025-08-31 21:30] LABS: Appearance Urine Clear (Clear)
[2025-08-31 21:33] LABS: Sodium* 122 mmol/L (135-149)
--- NOTE | 2025-08-31 22:31 | PM.IMHP1 ---
Assessment and Plan Assessment and plan (1) Influenza A: Problem comment: -symptomatic dry cough, weakness, vomiting x2 - since resolved, otherwise afebrile -Tamiflu, renally dosed, 30 mg b.i.d. Status: Acute (2) Hyponatremia: Problem comment: -sodium 122, previously 127 in April (patient was unaware) -poor oral intake, denies increased free water intake -fluid restriction 1500 mL, protein supplements, hold HCTZ, received 1 L NS in ED -urine sodium, osmolality ordered -recheck sodium at 2300, 0200, 0400 Status: Acute (3) Weakness: Problem comment: -acute, iso hyponatremia and influenza a -PT/OT consults Status: Acute (4) HTN (hypertension): Problem comment: -hold triamterene/HCTZ iso hyponatremia -continue losartan Status: Acute (5) Type 2 diabetes mellitus: Problem comment: -hold metformin -glucose and insulin sliding scale ACHS Status: Acute (6) Hyperbilirubinemia: Problem comment: -chronic, 1.9, baseline 1.8-2.7 Status: Acute Total Time Spent Total Time Spent: Today I spent 75 minutes seeing the patient, reviewing Expanse and EPIC notes/diagnostics, discussing the care plan with our care time that includes social work, PT/OT, pharmacy, RT, custodial and documenting my impressions and plan in the medical record. Hospitalist- H&P: HPI History of Present Illness Date Seen: 08/31/25 Chief complaint: Weakness Narrative: Bryan Partida is a 85 year old male past medical history significant for type 2 diabetes mellitus, GERD, hypertension, hyperlipidemia, malignant neoplasm of prostate is admitted to the medical floor from the ED with hyponatremia and influenza A. Patient is seen with daughter at bedside. Reports a dry cough for the past several days. Denies shortness of breath or dyspnea. This morning was attempting to get out of his lazy Boy and was suddenly very weak, sliding to the floor from the seat. Has had to use his walker the rest of the day. Denies headache or dizziness. Denies chest pain or shortness of breath. No fevers. Denies ear pain, sore throat, congestion. Denies abdominal pain. Took his omeprazole this morning and was going to eat breakfast but ended up vomiting. Vomited x2 today. Had 1 loose stool tonight. PCP is Dr. Khoury. Nonsmoker. Occasional alcohol use. Has a healthcare directive with Dr. Khoury however I am not able to find this within his immediate chart. We discussed a modified code, initial efforts with CPR but no sustained efforts. Does not want to be a ?vegetable. ? Review of Systems Narrative: REVIEW OF SYSTEMS: Complete review of systems performed and negative unless otherwise stated in HPI or below. Medical Decision Making Medical Decision Making Has patient completed a Health Care Directive: Yes PFSH PFSH Medical History Hyperbilirubinemia ?E80.6 - Other disorders of bilirubin metabolism (ICD-10) Erectile dysfunction ?N52.9 - Male erectile dysfunction, unspecified (ICD-10) H/O Mohs micrographic surgery for skin cancer ?Z85.828 - Personal history of other malignant neoplasm of skin (ICD-10) ?Z98.890 - Other specified postprocedural states (ICD-10) Ventral hernia ?K43.9 - Ventral hernia without obstruction or gangrene (ICD-10) Leg cramps ?R25.2 - Cramp and spasm (ICD-10) Tinea ?B35.9 - Dermatophytosis, unspecified (ICD-10) Type 2 diabetes mellitus ?E11.9 - Type 2 diabetes mellitus without complications (ICD-10) Malignant neoplasm of prostate ?C61 - Malignant neoplasm of prostate (ICD-10) History of squamous cell carcinoma ?Z85.89 - Personal history of malignant neoplasm of other organs and systems (ICD-10) History of basal cell carcinoma (BCC) ?Z85.828 - Personal history of other malignant neoplasm of skin (ICD-10) Gastroesophageal reflux disease ?K21.9 - Gastro-esophageal reflux disease without esophagitis (ICD-10) HTN (hypertension) ?I10 - Essential (primary) hypertension (ICD-10) Surgical History S/P prostatectomy ?Z90.79 - Acquired absence of other genital organ(s) (ICD-10) History of tonsillectomy and adenoidectomy ?Z90.89 - Acquired absence of other organs (ICD-10) History of cholecystectomy ?Z90.49 - Acquired absence of other specified parts of digestive tract (ICD-10) History of appendectomy ?Z90.49 - Acquired absence of other specified parts of digestive tract (ICD-10) Social History Narrative: 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 What is your current living situation?: I presently have a place to live Problems where you live: no known problems In the past 12 months, utilities in danger of being shut off: no In past 12 months, lack of transportation kept you from medical appts, meetings, work, or getting things needed for daily living: no In the past 12 mos, have been you worried that your food would run out before you had money to buy more?: never true In the past 12 mos, the food you bought just didn't last and you didn't have money to buy more?: never true Smoking Status: Former smoker How often do you have a drink containing alcohol: 2-4 times a month Alcohol type: beer How many standard drinks containing alcohol do you have on a typical day: 1 or 2 AUDIT-C Alcohol total score: 2 Non-prescribed substance use: denies use Caffeine: Yes How often does anyone, including family, friends and others, physically hurt you: never How often does anyone, including family, friends and others, insult or talk down to you: never How often does anyone, including family, friends and others, threaten you with harm: never How often does anyone, including family, friends and others, scream or curse at you: never Meds Home Medications and Allergies Home Medications ?Medication ?Instructions ?Recorded ?Confirmed ?Type acetaminophen 325 mg capsule 650 mg PO QDAY PRN 10/20/22 07/28/25 History (Tylenol) naproxen sodium 220 mg tablet 220 mg PO BID PRN 09/15/23 07/28/25 History (Aleve) atorvastatin 20 mg tablet 20 mg PO QPM #90 tabs 04/19/25 07/28/25 Rx losartan 50 mg tablet 50 mg PO DAILY for blood pressure 04/19/25 07/28/25 Rx #90 tabs metformin 500 mg tablet,extended 1,000 mg (2 x 500 mg) PO QDAY #180 04/19/25 07/28/25 Rx release 24 hr tabs triamterene 75 1 tab PO DAILY Hypertension #90 04/19/25 07/28/25 Rx mg-hydrochlorothiazide 50 mg tablet tabs omeprazole 20 mg capsule,delayed 20 mg PO DAILY gerd #90 caps 05/18/25 07/28/25 Rx release Allergies Allergy/AdvReac Type Severity Reaction Status Date / Time penicillin V Allergy Severe Anaphylaxis Verified 08/31/25 19:33 codeine Allergy Mild abd pain Verified 08/31/25 19:33 Exam Narrative: Exam Narrative: PHYSICAL EXAM General: Very pleasant, conversant, laughing and joking with staff, NAD HEENT: Normocephalic, atraumatic, sclera white, EOMI, oral mucosa moist Cardiovascular: RRR, S1S2. +1 pitting edema bilaterally Pulmonary: CTA bilaterally without rhonchi, rales, expiratory wheezes. No dyspnea on room air Abdominal: Soft, nondistended, NTTP Neurological: Alert, answering questions appropriately, cranial nerves intact, no focal findings Extremities: No gross joint deformity or swelling. AROMI. Neurovascularly intact Skin: Warm, dry. Const: Vital Signs, click to edit/add: Vital Signs - 24 hr 08/31/25 19:33 Temperature 97.3 F L Pulse Rate [Pulse Oximeter] 91 Respiratory Rate 20 Blood Pressure [Ri ght Upper Arm] 131/66 Pulse Oximetry 93 Oxygen Delivery Me thod Room Air Hospitalist - H&P: Result Labs Labs: Short CBC 08/31/25 Range/Units 20:34 WBC 5.95 (4.50-11.00) K/uL Hgb 13.0 L (13.5-17.5) gm/dL Hct 38.7 (37.0-53.0) % Plt Count 230 (140-440) K/uL BMP 08/31/25 20:34 Sodium 122 L* Potassium 3.5 L Chloride 86 L Carbon Dioxide 29 BUN 20 Creatinine 1.0 Glucose 160 H Calcium 8.9 Liver Function 08/31/25 Range/Units 20:34 Total Bilirubin 1.9 H (0.1-1.5) mg/dL AST 26 (12-35) U/L ALT 21 (4-50) U/L Alkaline Phosphatase 60 (40-150) U/L Albumin 4.0 (3.3-5.0) g/dL Urine 08/31/25 Range/Units 21:20 Urine Color Yellow (Yellow) Urine Appearance Clear (Clear) Urine pH 6.0 (5.0-8.5) Ur Specific [place] 1.025 (1.000-1.030) Urine Protein 2+ A (Negative) Urine Glucose (UA) Negative (Negative) Imaging Chest x-ray: Attestation: I have reviewed the pertinent imaging results. Radiologist's impression: Cardiovasculature and mediastinum: Stable cardiomegaly. Unremarkable mediastinum. Lungs and pleural spaces: Lungs are clear. No sign of infiltrate or mass. No sign of pleural effusion. No pneumothorax. Bones and soft tissues: No significant findings. IMPRESSION: No acute findings no change compared to the prior exam. Stable cardiomegaly. No sign of CHF or pneumonia.
[2025-08-31] MEDS: OSELTAMIVIR 30 MG CAPSULE PO (22:35)
[2025-08-31] MEDS: POTASSIUM CHLORIDE 10 MEQ CAPSULE ER 40 MEQ PO (23:50)
[2025-08-31 23:56] LABS: Sodium* 122 mmol/L (135-149)
[2025-09-01] VITALS (11 sets, daily range): BP systolic 122–150; BP diastolic 68–86; PULSE 73–96; RESP 16–20; TEMP 36–37.8; O2SAT 91–97
[2025-09-01 02:56] LABS: Sodium Urine Random* 12
[2025-09-01 03:01] LABS: Sodium* 122 mmol/L (135-149)
[2025-09-01] MEDS: SODIUM CHLORIDE 1 GM TABLET PO ×4 (03:24→18:02)
[2025-09-01] MEDS: ONDANSETRON 2 MG/ML inj 4 MG IVP (04:04)
[2025-09-01 07:17] LABS: Hematocrit* 40.3 % (37.0-53.0); Hemoglobin* 13.3 gm/dL (13.5-17.5); Mean Corpuscular HGB Conc 33 gm/dL (32-36); Mean Corpuscular Hemoglobin 30 pg (26-34); Mean Corpuscular Volume 91 fL (80-100); Red Blood Count* 4.42 m/uL (4.30-5.90); White Blood Count* 5.44 K/uL (4.50-11.00)
[2025-09-01 07:23] LABS: Chloride* 87 mmol/L (96-114)
[2025-09-01 07:24] LABS: Potassium* 3.4 mmol/L (3.6-5.1)
[2025-09-01 07:27] LABS: Blood Urea Nitrogen* 18 mg/dL (7-30); Calcium* 8.7 mg/dL (8.4-10.6); Carbon Dioxide* 29 mmol/L (20-32); Creatinine* 0.8 mg/dL (0.5-1.5); Est. Creatinine Clearance* 55.43; Estimated Glomerular Filt Rate 86 ml/min; Glucose* 130 mg/dL (60-115)
[2025-09-01 07:28] LABS: Slide Review Reflex No
--- NOTE | 2025-09-01 07:29 | PC.NURSE ---
End of shift report: Pt arrived?to?the floor at 2245. AxOx4.?On RA.?Denies SOB. Denies pain. Pt is on 1500 FR. Ambulates?SBA, GB, W.?At around 0330 pt had an episode of clear?15 ml?of emesis, prn?zofran?ordered and?given?with?relief. BLE?edema. Pt is?on?1500 FR.?Pt is resting in bed, call light within reach.
[2025-09-01 08:00] LABS: Anion Gap 7 mEq/L (7-15); Sodium* 123 mmol/L (135-149)
[2025-09-01] MEDS: LOSARTAN POTASSIUM 50 MG TABLET PO (09:48)
[2025-09-01] MEDS: OMEPRAZOLE 20 MG CAPSULE DR PO (09:48)
[2025-09-01] MEDS: SODIUM CHLORIDE 0.9 % (FLUSH) 10 ML SYRINGE 5 ML IVF ×2 (09:49→20:51)
[2025-09-01] MEDS: FUROSEMIDE 40 MG TABLET PO (09:49)
[2025-09-01] MEDS: OSELTAMIVIR 30 MG CAPSULE PO ×2 (09:52→20:50)
[2025-09-01 12:13] LABS: Sodium* 125 mmol/L (135-149)
--- NOTE | 2025-09-01 15:25 | PM.IMPN1 ---
Assessment and Plan Assessment and plan (1) Influenza A: Problem comment: -symptomatic dry cough, weakness, vomiting x2 - since resolved, otherwise afebrile -Tamiflu, renally dosed, 30 mg b.i.d. Status: Acute (2) Hyponatremia: Problem comment: -sodium 122, previously 127 in April (patient was unaware) -poor oral intake, denies increased free water intake -fluid restriction 1500 mL, protein supplements, hold HCTZ, received 1 L NS in ED -urine sodium, osmolality ordered -monitor serum sodiums, consider 3% normal saline bolus Status: Acute (3) Weakness: Problem comment: -acute, iso hyponatremia and influenza a -PT/OT consults Status: Acute (4) HTN (hypertension): Problem comment: -hold triamterene/HCTZ iso hyponatremia -continue losartan Status: Acute (5) Type 2 diabetes mellitus: Problem comment: -hold metformin -glucose and insulin sliding scale ACHS Status: Acute (6) Hyperbilirubinemia: Problem comment: -chronic, 1.9, baseline 1.8-2.7 Status: Acute Plan 1. Reviewed impression, plans, recommendations with patient and family member 2. Answered their questions their satisfaction 3. Agree with above stated plan recommendations Total Time Spent Total Time Spent: 40 minutes Subjective Date Seen: 09/01/25 Interval history: Admission history of present illness: ?85 year old male past medical history significant for type 2 diabetes mellitus, GERD, hypertension, hyperlipidemia, malignant neoplasm of prostate is admitted to the medical floor from the ED with hyponatremia and influenza A. ?Patient is seen with daughter at bedside. Reports a dry cough for the past several days. Denies shortness of breath or dyspnea. This morning was attempting to get out of his lazy Boy and was suddenly very weak, sliding to the floor from the seat. Has had to use his walker the rest of the day. Denies headache or dizziness. Denies chest pain or shortness of breath. No fevers. Denies ear pain, sore throat, congestion. Denies abdominal pain. Took his omeprazole this morning and was going to eat breakfast but ended up vomiting. Vomited x2 today. Had 1 loose stool tonight. ?PCP is Dr. Khoury. Nonsmoker. Occasional alcohol use. Has a healthcare directive with Dr. Khoury however I am not able to find this within his immediate chart. We discussed a modified code, initial efforts with CPR but no sustained efforts. Does not want to be a ?vegetable. ?? 09/01/2025: Hospital day 2. Starting to feel little stronger now than previously. Leg still weak however. Did have an episode where he slid off of the toilet today without any injuries or trauma. No more nausea vomiting. Tolerating increased oral intake. Tolerating medications. Exam Narrative: Exam Narrative: Examined the patient in his hospital room before and after the incident where he slipped off the toilet without injury. Appears comfortable no acute distress. Still has truncal weakness with patient listing off to the left side while sitting on the edge of his bed. Lungs for the most part clear to auscultation without wheezing, rhonchi, rales. Heart tones with regular rhythm, normal S1-S2. Abdomen benign. Extremities without edema. No focal motor neurologic deficits. Skin is warm, dry, intact. Const: Vital Signs, click to edit/add: Vital Signs - 24 hr 08/31/25 19:33 08/31/25 20:11 08/31/25 20:42 Temperature 36.3 C L Pulse Rate 71 Pulse Rate [Pulse Oximeter] 91 Pulse Rate [Right Pulse Oximeter] Pulse Rate [Right Radial] Respiratory Rate 20 Blood Pressure Blood Pressure [Le ft Arm] Blood Pressure [Ri ght Upper Arm] 131/66 Pulse Oximetry 93 96 91 Oxygen Delivery Me thod Room Air 08/31/25 20:45 08/31/25 21:00 08/31/25 21:10 Temperature Pulse Rate 87 78 Pulse Rate [Pulse Oximeter] Pulse Rate [Right Pulse Oximeter] Pulse Rate [Right Radial] Respiratory Rate 16 Blood Pressure 134/74 Blood Pressure [Le ft Arm] Blood Pressure [Ri ght Upper Arm] Pulse Oximetry 97 98 Oxygen Delivery Me thod Room Air 08/31/25 21:22 08/31/25 21:31 08/31/25 21:33 Temperature Pulse Rate 83 83 80 Pulse Rate [Pulse Oximeter] Pulse Rate [Right Pulse Oximeter] Pulse Rate [Right Radial] Respiratory Rate 16 Blood Pressure 124/72 Blood Pressure [Le ft Arm] Blood Pressure [Ri ght Upper Arm] Pulse Oximetry 92 97 97 Oxygen Delivery Me thod 08/31/25 21:45 08/31/25 22:00 08/31/25 22:02 Temperature Pulse Rate 83 78 Pulse Rate [Pulse Oximeter] Pulse Rate [Right Pulse Oximeter] Pulse Rate [Right Radial] Respiratory Rate 16 Blood Pressure 101/72 Blood Pressure [Le ft Arm] Blood Pressure [Ri ght Upper Arm] Pulse Oximetry 96 90 Oxygen Delivery Me thod Room Air 08/31/25 22:15 08/31/25 22:45 08/31/25 22:45 Temperature 36.8 C Pulse Rate 80 Pulse Rate [Pulse Oximeter] Pulse Rate [Right Pulse Oximeter] 79 Pulse Rate [Right Radial] Respiratory Rate 18 18 Blood Pressure Blood Pressure [Le ft Arm] 143/89 H Blood Pressure [Ri ght Upper Arm] Pulse Oximetry 94 96 96 Oxygen Delivery Ma thod Room Air Room Air 09/01/25 03:00 09/01/25 05:08 09/01/25 07:26 Temperature 36.9 C Pulse Rate 82 79 Pulse Rate [Pulse Oximeter] Pulse Rate [Right Pulse Oximeter] 85 Pulse Rate [Right Radial] Respiratory Rate 20 Blood Pressure Blood Pressure [Le ft Arm] 143/81 H Blood Pressure [Ri ght Upper Arm] Pulse Oximetry 93 Oxygen Delivery Ma thod Room Air 09/01/25 07:50 09/01/25 07:50 09/01/25 11:10 Temperature 36.6 C 36.7 C Pulse Rate Pulse Rate [Pulse Oximeter] Pulse Rate [Right Pulse Oximeter] 84 74 Pulse Rate [Right Radial] 84 74 Respiratory Rate 20 20 18 Blood Pressure Blood Pressure [Le ft Arm] 133/81 136/68 Blood Pressure [Ri ght Upper Arm] Pulse Oximetry 97 94 Oxygen Delivery Ma thod Room Air Room Air Labs Labs: Laboratory Results - last 24 hr 08/31/25 08/31/25 08/31/25 19:38 20:34 21:20 WBC 5.95 RBC 4.29 L Hgb 13.0 L Hct 38.7 MCV 90 MCH 30 MCHC 34 RDW Coeff of [place] 13.1 Plt Count 230 Neut % (Auto) 80.7 H Lymph % (Auto) 5.0 L [place] % (Auto) 13.1 H Eos % (Auto) 0.2 Baso % (Auto) 0.7 Neut # (Auto) 4.80 Lymph # (Auto) 0.30 L [place] # (Auto) 0.80 Eos # (Auto) 0.01 Baso # (Auto) 0.04 Abs Immat Gran (auto) 0.02 Imm/Tot Granulo (auto) 0.3 Sodium 122 L* Potassium 3.5 L Chloride 86 L Carbon Dioxide 29 Anion Gap 7 BUN 20 Creatinine 1.0 Estimated Creat Clear 55.43 Estimated GFR 73 Glucose 160 H Lactate 1.5 Calcium 8.9 Magnesium Total Bilirubin 1.9 H AST 26 ALT 21 Alkaline Phosphatase 60 C-Reactive Protein 2.4 H Total Protein 6.7 Albumin 4.0 Urine Color Yellow Urine Appearance Clear Urine pH 6.0 Ur Specific [place] 1.025 Urine Protein 2+ A Urine Glucose (UA) Negative Urine Ketones Negative Urine Blood Negative Urine Nitrite Negative Urine Bilirubin Negative Urine Urobilinogen 0.2 Ur Leukocyte Esterase Negative Urine RBC 0-2 Urine WBC 0-2 Ur Squamous Epith Cells None Urine Bacteria None Ur Random Sodium SARS-CoV-2 (PCR) Negative SARS-CoV-2 Influenza Type A (PCR) POSITIVE PCR FLU A A Influenza Type B (PCR) Negative PCR FLU B RSV (PCR) Negative PCR RSV Lab Acknowledgement 08/31/25 09/01/25 09/01/25 23:19 02:05 02:32 WBC RBC Hgb Hct MCV MCH MCHC RDW Coeff of [place] Plt Count Neut % (Auto) Lymph % (Auto) [place] % (Auto) Eos % (Auto) Baso % (Auto) Neut # (Auto) Lymph # (Auto) [place] # (Auto) Eos # (Auto) Baso # (Auto) Abs Immat Gran (auto) Imm/Tot Granulo (auto) Sodium 122 L* 122 L* Potassium Chloride Carbon Dioxide Anion Gap BUN Creatinine Estimated Creat Clear Estimated GFR Glucose Lactate Calcium Magnesium 1.6 Total Bilirubin AST ALT Alkaline Phosphatase C-Reactive Protein Total Protein Albumin Urine Color Urine Appearance Urine pH Ur Specific [place] Urine Protein Urine Glucose (UA) Urine Ketones Urine Blood Urine Nitrite Urine Bilirubin Urine Urobilinogen Ur Leukocyte Esterase Urine RBC Urine WBC Ur Squamous Epith Cells Urine Bacteria Ur Random Sodium 12 SARS-CoV-2 (PCR) Influenza Type A (PCR) Influenza Type B (PCR) RSV (PCR) Lab Acknowledgement Test Added 09/01/25 09/01/25 05:55 11:50 WBC 5.44 RBC 4.42 Hgb 13.3 L Hct 40.3 MCV 91 MCH 30 MCHC 33 RDW Coeff of [place] Plt Count 224 Neut % (Auto) Lymph % (Auto) [place] % (Auto) Eos % (Auto) Baso % (Auto) Neut # (Auto) Lymph # (Auto) [place] # (Auto) Eos # (Auto) Baso # (Auto) Abs Immat Gran (auto) Imm/Tot Granulo (auto) Sodium 123 L* 125 L Potassium 3.4 L Chloride 87 L Carbon Dioxide 29 Anion Gap 7 BUN 18 Creatinine 0.8 Estimated Creat Clear 55.43 Estimated GFR 86 Glucose 130 H Lactate Calcium 8.7 Magnesium Total Bilirubin AST ALT Alkaline Phosphatase C-Reactive Protein Total Protein Albumin Urine Color Urine Appearance Urine pH Ur Specific [place] Urine Protein Urine Glucose (UA) Urine Ketones Urine Blood Urine Nitrite Urine Bilirubin Urine Urobilinogen Ur Leukocyte Esterase Urine RBC Urine WBC Ur Squamous Epith Cells Urine Bacteria Ur Random Sodium SARS-CoV-2 (PCR) Influenza Type A (PCR) Influenza Type B (PCR) RSV (PCR) Lab Acknowledgement
[2025-09-01] MEDS: ACETAMINOPHEN 325 MG TABLET PO (15:51)
--- NOTE | 2025-09-01 18:59 | PC.NURSE ---
End of shift. pt has been very pleasant. AxOx4.?On RA.?Denies SOB. Denies pain. he is up with 1 assist walker and GB. he is a fall risk and alarms are on. pt did have a fall in the BR, no injury. Pt is on 1500 FR. Ambulates?SBA, GB, .?Pt is resting in bed, call light within reach. PT and OT are working with him family was here and are aware.
[2025-09-01] MEDS: ENOXAPARIN 40 MG/0.4 ML INJ SUBCUT (20:49)
--- NOTE | 2025-09-01 22:44 | PC.NURSE ---
Nursing Care Hours: [id number] Pt this shift in bed for the night. Vibratory PEP used during assessment causing a cough. Tight and moist cough with expiratory wheeze on auscultation.
[2025-09-02 03:00] VITALS: BP 134/71; PULSE 81; RESP 22; TEMP 36.6; O2SAT 92
--- NOTE | 2025-09-02 05:23 | PC.NURSE ---
pt pleasant and cooperative with cares, assist of 1 w/gait belt and walker. pt slept throughout shift. VSS on RA. Pt sleeping comfortably in bed at this time, chest rise and fall noted.
[2025-09-02 06:57] VITALS: PULSE 80
[2025-09-02 07:20] VITALS: PULSE 76; PULSE 81; RESP 18
[2025-09-02 07:26] LABS: Hematocrit* 38.5 % (37.0-53.0); Hemoglobin* 12.7 gm/dL (13.5-17.5); Mean Corpuscular HGB Conc 33 gm/dL (32-36); Mean Corpuscular Hemoglobin 30 pg (26-34); Mean Corpuscular Volume 91 fL (80-100); Red Blood Count* 4.21 m/uL (4.30-5.90); White Blood Count* 4.85 K/uL (4.50-11.00)
[2025-09-02 07:30] VITALS: BP 158/83; PULSE 76; PULSE 81; RESP 18; TEMP 37.3; O2SAT 94
[2025-09-02 07:30] LABS: Slide Review Reflex No
[2025-09-02 07:40] LABS: Chloride* 90 mmol/L (96-114); Potassium* 3.2 mmol/L (3.6-5.1); Sodium* 126 mmol/L (135-149)
[2025-09-02 07:43] LABS: Blood Urea Nitrogen* 19 mg/dL (7-30); Creatinine* 0.9 mg/dL (0.5-1.5); Est. Creatinine Clearance* 55.43; Estimated Glomerular Filt Rate 83 ml/min
[2025-09-02 07:44] LABS: Anion Gap 6 mEq/L (7-15); Calcium* 8.4 mg/dL (8.4-10.6); Carbon Dioxide* 30 mmol/L (20-32); Glucose* 123 mg/dL (60-115)
[2025-09-02] MEDS: FUROSEMIDE 40 MG TABLET PO (09:31)
[2025-09-02] MEDS: LOSARTAN POTASSIUM 50 MG TABLET PO (09:32)
[2025-09-02] MEDS: OMEPRAZOLE 20 MG CAPSULE DR PO (09:32)
[2025-09-02] MEDS: 3 % SODIUM CHLORIDE 500 ml 30 ML IV (09:33)
[2025-09-02] MEDS: SODIUM CHLORIDE 0.9 % (FLUSH) 10 ML SYRINGE 5 ML IVF (09:33)
[2025-09-02] MEDS: SODIUM CHLORIDE 1 GM TABLET PO ×2 (09:33→12:11)
[2025-09-02] MEDS: OSELTAMIVIR 30 MG CAPSULE PO (09:51)
[2025-09-02 11:47] VITALS: BP 138/85; PULSE 75; RESP 18; TEMP 37.4; O2SAT 93
[2025-09-02] MEDS: POTASSIUM BICARB 25 MEQ EFFERVESCENT TAB 50 MEQ PO (12:11)
[2025-09-02 12:23] LABS: Sodium* 129 mmol/L (135-149)
--- NOTE | 2025-09-02 14:01 | PC.NURSE ---
discharge. pt is very pleasant. pt his AxOx2 off on the day, he is on RA.?he said he is not SOB. Denies pain. he is up with 1 assist walker and GB. he is a fall risk and alarms are on. Pt is on 1500 FR. Ambulates?SBA, GB, .?Pt is resting in bed, call light within reach. went over discharge packet with Pt and daughter, went over medication, appointments, education and instructions. SL was d/c intact. tele was d/c. he got a w/c ride out.
--- NOTE | 2025-09-02 16:07 | PM.DS1 ---
DS: Providers Provider Date Seen: 09/02/25 Date of admission: 08/31/25 22:41 Primary care physician: Froy Khoury MD Admitting Clinician: Janine Garland MD Consults: 08/31/25 23:07 Consult to Physical Therapy [CONS] Routine Comment: Reason(s) for PT Consult:: Evaluate and Treat Any Restrictions?:: No Restrictions 09/01/25 11:10 Consult to Occupational Therapy [CONS] Routine Comment: Reason(s) for OT Consult:: Evaluate and Treat Any Restrictions?:: No Restrictions Consult to Physical Therapy [CONS] Routine Comment: Reason(s) for PT Consult:: Evaluate and Treat Any Restrictions?:: No Restrictions Attending Physician on discharge: Mark Oseguera MD Date of Discharge: 09/02/25 DS: Diagnosis Discharge Diagnosis (1) Influenza A: Status: Acute Problem details: -symptomatic dry cough, weakness, vomiting x2 - since resolved, otherwise afebrile -Tamiflu, renally dosed, 30 mg b.i.d. for a total 5 days (2) Hyponatremia: Status: Acute Problem details: -sodium 122, previously 127 in April (patient was unaware) -poor oral intake, denies increased free water intake -fluid restriction 1500 mL, protein supplements, hold HCTZ, received 1 L NS in ED -urine sodium, osmolality ordered -monitor serum sodiums, consider 3% normal saline bolus -serum sodium 129 on date of discharge. Continue with fluid restriction and holding hydrochlorothiazide with followup as specified. (3) Hyperbilirubinemia: Status: Acute Problem details: -chronic, 1.9, baseline 1.8-2.7 (4) Weakness: Status: Acute Problem details: -acute, iso hyponatremia and influenza a -PT/OT consults DS: Summary Hospital Course Hospital Course: Admission history of present illness: ?85 year old male past medical history significant for type 2 diabetes mellitus, GERD, hypertension, hyperlipidemia, malignant neoplasm of prostate is admitted to the medical floor from the ED with hyponatremia and influenza A. ?Patient is seen with daughter at bedside. Reports a dry cough for the past several days. Denies shortness of breath or dyspnea. This morning was attempting to get out of his lazy Boy and was suddenly very weak, sliding to the floor from the seat. Has had to use his walker the rest of the day. Denies headache or dizziness. Denies chest pain or shortness of breath. No fevers. Denies ear pain, sore throat, congestion. Denies abdominal pain. Took his omeprazole this morning and was going to eat breakfast but ended up vomiting. Vomited x2 today. Had 1 loose stool tonight. ?PCP is Dr. Khoury. Nonsmoker. Occasional alcohol use. Has a healthcare directive with Dr. Khoury however I am not able to find this within his immediate chart. We discussed a modified code, initial efforts with CPR but no sustained efforts. Does not want to be a ?vegetable. ?? 09/01/2025: Hospital day 2. Starting to feel little stronger now than previously. Leg still weak however. Did have an episode where he slid off of the toilet today without any injuries or trauma. No more nausea vomiting. Tolerating increased oral intake. Tolerating medications. 09/02/2025: Hospital day 3 Patient is discharged. Serum sodium 129. Continue with fluid restrictions and stopping the hydrochlorothiazide. Follow-up with primary care physician. Reviewed with patient daughter, Sanjuanita Ramirez Answered her questions. Status at Discharge Functional status at discharge: uses cane/walker Time Spent with Patient Time attestation: Total time spent providing and/or coordinating discharge services: Time spent: Greater than 30 minutes Exam Narrative: Exam Narrative: Examined the patient in his hospital room before and after the incident where he slipped off the toilet without injury. Appears comfortable no acute distress. Still has truncal weakness with patient listing off to the left side while sitting on the edge of his bed. Lungs for the most part clear to auscultation without wheezing, rhonchi, rales. Heart tones with regular rhythm, normal S1-S2. Abdomen benign. Extremities without edema. No focal motor neurologic deficits. Skin is warm, dry, intact. Const: Vital Signs, click to edit/add: Vital Signs - 24 hr 09/01/25 19:00 09/01/25 19:43 09/01/25 21:30 Temperature 36.6 C Pulse Rate 74 Pulse Rate [Right Pulse Oximeter] Pulse Rate [Right Radial] 73 73 Respiratory Rate 20 20 Blood Pressure [Ri ght Arm] 150/86 H Pulse Oximetry 96 Oxygen Delivery Me thod Room Air 09/01/25 23:00 09/01/25 23:00 09/01/25 23:00 Temperature 36.0 C L Pulse Rate 87 Pulse Rate [Right Pulse Oximeter] 96 96 Pulse Rate [Right Radial] Respiratory Rate 16 16 Blood Pressure [Ri ght Arm] 122/76 Pulse Oximetry 91 Oxygen Delivery Me thod Room Air 09/02/25 03:00 09/02/25 06:57 09/02/25 07:20 Temperature 36.6 C Pulse Rate 80 Pulse Rate [Right Pulse Oximeter] 81 81 Pulse Rate [Right Radial] 76 Respiratory Rate 22 18 Blood Pressure [Ri ght Arm] 134/71 Pulse Oximetry 92 Oxygen Delivery Me thod Room Air 09/02/25 07:30 09/02/25 11:47 Temperature 37.3 C 37.4 C Pulse Rate Pulse Rate [Right Pulse Oximeter] 81 75 Pulse Rate [Right Radial] 76 75 Respiratory Rate 18 18 Blood Pressure [Ri ght Arm] 158/83 H 138/85 Pulse Oximetry 94 93 Oxygen Delivery Me thod Room Air Room Air DS: Data Data Completed and Pending Labs on day of discharge: Labs from last 24 hours 09/02/25 09/02/25 09/01/25 12:00 06:00 02:05 WBC 4.85 RBC 4.21 L Hgb 12.7 L Hct 38.5 MCV 91 MCH 30 MCHC 33 Plt Count 219 Sodium 129 L 126 L Potassium 3.2 L Chloride 90 L Carbon Dioxide 30 Anion Gap 6 L BUN 19 Creatinine 0.9 Estimated Creat Clear 55.43 Estimated GFR 83 Glucose 123 H Calcium 8.4 Ur Random Osmolality 626 Discharge Plan Discharge Disposition: Home, Self-Care Date of Admission: 08/31/25 22:41 Attending Provider on Discharge: Mark Oseguera Primary Care Provider: Froy Khoury Condition: Improved Anticipated Discharge Date/Time: 09/02/25 13:00 Discharge Medications: New furosemide 40 mg Tablet 40 mg PO DAILY@0800 30 Days Qty: 30 1RF potassium chloride 10 mEq Capsule, Extended Release 20 meq PO DAILYWM 30 Days Qty: 30 1RF acetaminophen 325 mg Tablet 650 mg PO QID PRN30 Days Qty: 100 0RF sodium chloride 1,000 mg Tablet,Soluble 1,000 mg PO TIDWM 30 Days Qty: 90 0RF oseltamivir 30 mg Capsule 30 mg PO BID 3 Days Qty: 6 0RF Continued losartan 50 mg tablet 50 mg PO DAILY Qty: 90 2RF atorvastatin 20 mg tablet 20 mg PO HS metformin 500 mg tablet extended release 24 hr 1,000 mg PO DAILY omeprazole 20 mg capsule,delayed release(DR/EC) 20 mg PO DAILY Qty: 90 3RF Discontinued naproxen sodium [Aleve] 220 mg tablet 220 mg PO BID PRN triamterene-hydrochlorothiazid 75-50 mg tablet 1 tab PO DAILY Qty: 90 3RF Discharge Orders: Discharge Order (Routine); Ordered 09/02/25 Ordered By: Mark Oseguera Patient Education: Furosemide (By mouth), Acetaminophen (By mouth), Potassium Chloride (By mouth), Oseltamivir (By mouth), Sodium Chloride (By mouth), Influenza (DC), Fluid Restriction (DC) Additional Instructions: 1. Stop taking the triamterene-hydrochlorothiazide - it caused the low sodium and potassium 2. Stop naproxen (Aleve) - it can cause kidney damage and elctrolyte abnormalities 3. Start furosemide as prescribed in place of triamterene-hydrochlorothiazide 4. Start acetaminophen as prescribed instead of naproxen (Aleve) 5. Follow-up with your primary college and career counselor in 3-10 days with previsit basic metabolic panel 6. Return to the clinic or hospital sooner if necessary 7. We recommend you obtain a home safety assessment from a physical and/or occupational therapy home care agency Activity Level: No Restrictions, Activity as Tolerated and Use Walker Discharge Diet: Regular and 2000 ml Fluid Restriction Follow Up Appointments: Sugar Farley MD [Staff Physician, Internal Medicine] - 09/11/25 8:30 am Referral Note: [facility] for hospital follow-up. Primary wasn't available. Froy Khoury MD [Primary Care Provider, Internal Medicine] Forms: [employer] Info Instructions
== END 2025-09-02 13:45 | disposition home or self-care (01) | DRG 194 ==
LOC: ED 21:58 → MEDSURG 22:41
PROVIDERS: Internal Medicine; Physician Assistant; Admitting Provider Family Medicine; Emergency Provider Family Medicine; PCP Internal Medicine; Visit Provider Family Medicine
DX: J10.1 Influenza due to other identified influenza virus with other respiratory manifestations (principal); E87.1 Hypo-osmolality and hyponatremia; E11.9 Type 2 diabetes mellitus without complications; Z79.84 Long term (current) use of oral hypoglycemic drugs; E80.6 Other disorders of bilirubin metabolism; K21.9 Gastro-esophageal reflux disease without esophagitis; I10 Essential (primary) hypertension; E78.5 Hyperlipidemia, unspecified; C61 Malignant neoplasm of prostate; Z91.81 History of falling
CPT/HCPCS: 36415; 71045; 80048; 80053; 81001; 82962; 83605; 83735; 83935; 84295; 84300; 85025; 85027; 86140; 87631; 94761; 97110; 97116; 97161; 97165; 99284; 99285; A9270; J1650; J2405; J7030; J7131